=== PATIENT | male | born 1950 | race Caucasian/White ===

== ENCOUNTER 2021-07-21 05:35 | Day surgery (SDC) | payer OTHER ==
[~2021-07-21] VITALS: Ht 180 cm; Wt 93.9 kg
[~2021-07-21 05:35] MED LIST: AMLODIPINE BESYL5 MG PO; ASPIRIN EC81 MG PO; ATORVASTATIN CA40 MG PO; CYCLOBENZAPRINE10 MG PO; FIORICET1 EACH PO; FOLIC ACID1 M1 PO; LISINOPRIL40 MG PO; LOPRESSOR25 MG PO; MONTELUKAST SOD10 MG PO; NIZATIDINE150 MG PO; PRILOSEC20 MG PO; PROAIR HFA8.5 GM INH; TESSALON PERLE100 MG PO
--- NOTE | 2021-07-21 13:59 | NUR ---
PT. REQUESTS [facility] FOR PT. AND [facility] FOR RW. PT. SIGNED CHOICE FORM. PT. WILL D/C HOME WITH SPOUSE. CLINICALS SENT TO [facility] AND WAS ACCEPTED BY [facility]. [facility] DELIVERED A RO[employer]ING WALKER.
[2021-07-21] MEDS ORDERED: ZOFRAN4 M1 PO (15:04)
[2021-07-21] MEDS ORDERED: OXYCODONE-ACET1 EAC1 PO (15:04)
[2021-07-21] MEDS ORDERED: XARELTO10 MG PO (15:04)
[2021-07-21] MEDS ORDERED: FEOSOL325 MG PO (15:04)
== END 2021-07-21 19:00 | disposition home or self-care (01) ==
LOC: FAS 05:35
DX: M17.11 Unilateral primary osteoarthritis, right knee (principal); G89.18 Other acute postprocedural pain; I10 Essential (primary) hypertension; E78.5 Hyperlipidemia, unspecified; J43.9 Emphysema, unspecified; J45.909 Unspecified asthma, uncomplicated; K21.9 Gastro-esophageal reflux disease without esophagitis; I25.2 Old myocardial infarction; Z95.5 Presence of coronary angioplasty implant and graft; Z88.5 Allergy status to narcotic agent; Z79.82 Long term (current) use of aspirin; Z79.899 Other long term (current) drug therapy
CPT/HCPCS: 73560; 86850; 86900; 86901; 93005; 94010; 97162; 97530-GP; C1713; C1776; J0171; J0697; J0735; J1100; J1885; J2250; J2405; J2704; J2795; J3010; J7120